=== PATIENT | female | born 1935 | race Caucasian/White ===

== ENCOUNTER 2017-11-18 05:30 | Inpatient (IN) | payer MEDICARE, OTHER ==
[2017-11-18 17:59] LABS: Mean Corpuscular HGB CONC 34.3 g/dL (32.0-36.0); Mean Corpuscular Hemoglobin 32.1 pg (27.0-31.0); Mean Corpuscular Volume 93.4 fl (81.0-99.0); Mean Platelet Volume 8.8 fL (7.4-10.4); Platelet Count 153 thou/uL (130-400); RBC Distribution Width 12.1 % (11.5-14.5); Red Blood Cell (RBC) Count 4.68 mill/uL (4.20-5.40); White Blood Cell (WBC) Count 5.4 thou/uL (4.8-10.8)
--- NOTE | 2017-11-18 18:14 | RAD ---
CHEST 1 VIEW: Date: 11/18/17 HISTORY: Fever. COMPARISON: None. FINDINGS: There are patchy air space opacities in both lower lobes. Heart size is enlarged. No pneumothorax. No focal osseous abnormality. IMPRESSION: 1. Faint lower lobe air opacities are somewhat streaky and may represent pneumonia in the correct cl inical setting. Follow-up recommended. 2. Mild lung hyperinflation suggestive of obstructive pulmonary disease. POS: HOME
[2017-11-18 18:23] LABS: Band 45 % (5-11); Lymphocytes 4 % (21-51); MDiff Complete? YES; Metamyelocyte 12 % (0-0); Monocytes 8 % (0-10); Neutrophil 31 % (42-75); PLT Morphology Comment Appears Adequate; RBC Morphology Normal; Reflex for Review?? YES
[2017-11-18 18:25] LABS: ALT (SGPT) 18 U/L (8-55); AST (SGOT) 50 U/L (5-34); Albumin 4.1 g/dL (3.4-4.8); Alkaline Phosphatase 61 U/L (40-150); Anion Gap 19 mmol/L (10-20); BUN (Urea Nitrogen) 25 mg/dL (9.8-20.1); Bilirubin, Total 0.8 mg/dL (0.2-1.2); Calc. Creatinine Clearance 0 mL/min (70-130); Calcium 9.6 mg/dL (7.8-10.44); Carbon Dioxide 20 mmol/L (23-31); Chloride 97 mmol/L (98-107); Estimated GFR-MDRD 43; Globulin 3.9 g/dL (2.4-3.5); Glucose 129 mg/dL (83-110); Potassium 3.4 mmol/L (3.5-5.1); Sodium 133 mmol/L (136-145)
[2017-11-18] MEDS ORDERED: Acetaminophen 325 MG TAB ONE ×2 (19:50→19:55)
[2017-11-18 20:01] LABS: Bilirubin Negative (Negative); Blood, Urine Large (Negative); Clarity CLOUDY (Clear); Glucose, Urine (Dipstick) Negative (Negative); Leukocyte Negative (Negative); Nitrite Negative (Negative); Protein, Urine (Dipstick) 100 mg/dL (Neg-Trace)
[2017-11-18 20:03] LABS: Bacteria/HPF None Seen HPF (None Seen); Pathc Cast-AUWi Flag 1.49 (0-2.49); Squamous Epithelial 0-3 HPF (0-3)
[2017-11-18 20:11] LABS: Hyaline Casts/LPF 0-3 HYALINE CAST LPF (0-3 Hyaline); Renal Epithelial 0-3 HPF (0-3); Transitional Epithelial 0-3 HPF (0-3)
[2017-11-18] MEDS ORDERED: Metoprolol Tartrate 50 MG TAB ONE (20:27)
[2017-11-18] MEDS ORDERED: Acetaminophen 325 MG TAB PO PRN (21:02)
[2017-11-18] MEDS ORDERED: Sodium Chloride 0.9% 1,000 ML IV SCH (21:15)
[2017-11-18 21:51] LABS: Lactic Acid 2.1 mmol/L (0.5-2.2)
[2017-11-18] MEDS ORDERED: Potassium Chloride 20 MEQ TAB PO SCH (22:00)
[2017-11-18 22:26] LABS: Creatinine, Urine 66.91 mg/dL (47-110)
[2017-11-18] MEDS ORDERED: Sodium Chloride 0.9% 500 ML IV SCH (22:45)
[2017-11-19 00:23] VITALS: BMI 19.6
[2017-11-19] MEDS: Sodium Chloride 0.9% 1,000 ML IV SCH ×3 (00:38→11:27)
[2017-11-19] MEDS: cefTRIAXone\\ROCEPHIN 1 GM in Sterile Water 10 ML IVPB SCH ×2 (01:10→22:27)
--- NOTE | 2017-11-19 03:48 | HP-2 ---
DATE OF SERVICE: 11/18/2017 TIME OF SERVICE: 10:30 p.m. CODE STATUS: FULL CODE. PRIMARY CARE PHYSICIAN: Dr. Ward. ATTENDING: Dr. Cruz. RESIDENT: Alin Aguilar MD CHIEF COMPLAINT: Cough and fever. HISTORY OF PRESENT ILLNESS: Sofie Alexander is an 82-year-old woman with a past medical history of hyperte nsion, hyperlipidemia, who presents with a cough since , approximately 5 days ago. She has a lso had some loose stools starting yesterday as well. The cough has been productive with clear mucus . Her appetite has been decreased as well as she has not been eating or drinking much due to dry yasir th and non-comfortable dentures. Patient denies chest pains, dizziness, dyspnea, nausea, vomiting, o r abdominal pain. She was sent to the ED from Urgent Care. In the ER, she received Zosyn and vancom ycin as well as two 1 liter boluses of normal saline. PAST MEDICAL HISTORY: 1. Hypertension. 2. Hyperlipidemia. 3. Osteoarthritis. PAST SURGICAL HISTORY: 1. Appendectomy. 2. Lumpectomy. 3. Hysterectomy. ALLERGIES: PENICILLINS. MEDICATIONS: 1. Metoprolol tartrate 50 mg p.o. b.i.d. 2. Amlodipine 2.5 mg p.o. daily. FAMILY HISTORY: Unremarkable. SOCIAL HISTORY: Patient denies tobacco, alcohol, or drug use. REVIEW OF SYSTEMS: Twelve point review of systems including general, eyes, ENT, respiratory, CV, GI, , skin, musculoskeletal, neuro, and psych were all negative, unless otherwise stated in the HPI wi th the exception of incontinence, dysuria, and polyuria and nasal congestion or rhinorrhea. PHYSICAL EXAMINATION: VITAL SIGNS: Blood pressure 119/68, pulse 99, respiratory rate 22, her temperature 100.1, pulse ox 9 5% on 2 liters. Current weight 68 kilograms. GENERAL: The patient is alert and oriented x4, in no acute distress. Well-developed, well-nourished , appropriately interactive. EYES: Pupils equal, round, reactive to light and accommodation. Extraocular muscles are intact. Co njunctivae within normal limits. ENT: Tympanic membranes pearly louie without bulging or erythema. Nasal mucosa and oropharynx within normal limits. NECK: Supple without lymphadenopathy or thyromegaly. CARDIOVASCULAR: The patient is tachycardic at times. She had irregular rhythm on the monitor. She does not have any murmurs or gallops throughout the exam. The patient would switch from sinus rhythm to what appeared to be atrial flutter and back to sinus rhythm. RESPIRATORY: Normal effort. No retractions. LUNGS: Clear to auscultation bilaterally. SKIN: Warm and dry. No cyanosis or lesions. ABDOMEN: Soft, nontender, bowel sounds x4. No masses or distention. EXTREMITIES: No clubbing, cyanosis, or edema. MUSCULOSKELETAL: Structure and tone within normal limits. Full range of motion. NEUROLOGIC: No focal deficits. Sensation within normal limits. PSYCHIATRIC: Appropriate. LABORATORY AND DIAGNOSTIC DATA: White blood cell count 5.4, hemoglobin 15.0, hematocrit 43.7, platel ets 153, 45% bands, 31% neutrophils, 12% metamyelocytes. Sodium 133, potassium 3.4, chloride 97, car bon dioxide 20, BUN 25, creatinine 1.19, glucose 129, calcium 9.6, total protein 8.0, albumin 4.1, to ann bilirubin 0.8, AST 50, ALT 18, alkaline phosphatase 61, lactic acid 3.4. UA was significant for large blood, 100 protein, trace ketones, 7-10 red blood cells, and 4-6 white blood cells, no bacteria seen. EKG showed atrial flutter with a rate of 160. Chest x-ray showed faint lower lobe opacity, m ay represent pneumonia and mild lung hyperinflation suggestive of COPD. ASSESSMENT AND PLAN: An 82-year-old female with hypertension, hyperlipidemia, and osteoarthritis. 1. Sepsis secondary to pneumonia versus influenza versus urinary tract infection. Admit to telemetr y, check for influenza. Blood and urine cultures pending. Start IV antibiotics, vancomycin, and Jose ephin. The patient has allergy to PENICILLIN, but has tolerated Rocephin in the past. Normal white blood cell count, but increased bands of 45% and metamyelocytes of 12%. We will recheck a lactate. 2. New onset atrial flutter. Missed home dose of metoprolol and amlodipine today. Likely secondary to that and to acute infection. We will reevaluate after starting home meds and giving IV fluids. 3. Hypokalemia, supplement and recheck. 4. Acute kidney injury versus chronic kidney disease. Check urine sodium and urine creatinine to ch ariela for fractional excretion of sodium. 5. Hypertension. Start home medications. 6. Diet: Heart healthy. 7. Activity: Ambulate with assist. 8. Code status: FULL CODE. DISPOSITION AND LENGTH OF HOSPITAL STAY: Two days. Symptomatic medications were provided. History and physical exam as well as management were discussed with Dr. Cruz.
[2017-11-19 04:56] LABS: Anion Gap 11 mmol/L (10-20); BUN (Urea Nitrogen) 22 mg/dL (9.8-20.1); Calc. Creatinine Clearance 50 mL/min (70-130); Calcium 8.2 mg/dL (7.8-10.44); Carbon Dioxide 23 mmol/L (23-31); Chloride 104 mmol/L (98-107); Estimated GFR-MDRD 66; Glucose 95 mg/dL (83-110); Potassium 3.4 mmol/L (3.5-5.1); Sodium 135 mmol/L (136-145)
[2017-11-19 05:47] LABS: Band 20 % (5-11); Hemoglobin 12.6 g/dL (12.0-16.0); Lymphocytes 7 % (21-51); MDiff Complete? YES; Mean Corpuscular HGB CONC 34.7 g/dL (32.0-36.0); Mean Corpuscular Hemoglobin 32.2 pg (27.0-31.0); Mean Corpuscular Volume 92.8 fl (81.0-99.0); Mean Platelet Volume 9.3 fL (7.4-10.4); Metamyelocyte 3 % (0-0); Monocytes 6 % (0-10); Neutrophil 63 % (42-75); PLT Morphology Comment Appears Decreased; Platelet Count 124 thou/uL (130-400); RBC Morphology Normal; Reactive Lymphocytes 1 % (0-10); Red Blood Cell (RBC) Count 3.92 mill/uL (4.20-5.40); White Blood Cell (WBC) Count 3.9 thou/uL (4.8-10.8)
[2017-11-19] MEDS ORDERED: Potassium Chloride 20 MEQ TAB PO SCH (07:00)
[2017-11-19] MEDS ORDERED: Vancomycin HCl 1.25 GM in Sodium Chloride 0.9% 250 ML 250 ML IVPB SCH (09:00)
[2017-11-19] MEDS ORDERED: guaiFENesin ER 600 MG TAB PO SCH (09:00)
[2017-11-19] MEDS ORDERED: Azithromycin 250 MG TAB PO SCH (10:45)
[2017-11-19 11:24] LABS: Legionella Urinary Ag Negative (Negative); Strep pneumo Urine Ag POSITIVE (NEGATIVE)
--- NOTE | 2017-11-19 11:25 | PDOC.FM ---
- Subjective Subjective: Pt reports doing a little better this morning. Denies any fever, chills. Denies any acute events overnight. Is tolerating PO. Has not gotten up and moved around much yet. - Objective MAR Reviewed: Yes Vital Signs & Weight: Vital Signs (12 hours) Temp Pulse Resp BP BP Pulse Ox 11/19/17 08:42 99.0 F 74 18 94 L 11/19/17 08:40 99.0 F 74 18 137/69 96 11/19/17 06:10 66 18 114/53 L 96 11/19/17 05:15 82 20 95/50 L 96 11/19/17 04:01 98.5 F 74 18 104/45 L 95 11/18/17 23:37 97.8 F 65 24 H 112/54 L 91 L Weight Weight 62.142 kg I&O: 11/18/17 11/19/17 11/20/17 06:59 06:59 06:59 Intake Total 1020 400 Output Total 50 Balance 970 400 Result Diagrams: 11/19/17 03:52 11/19/17 03:52 Radiology Reviewed by me: Yes Radiology: CXR: 1. faint lower lobe air opacities are somewhat streaky and may represent pneumonia in clinical setting. 2. Mild lung hyperinflation suggestive of obstructive pulm disease <Christoph Coffman - Last Filed: 11/19/17 11:22> - Objective Vital Signs & Weight: Vital Signs (12 hours) Temp Pulse Resp BP BP Pulse Ox 11/19/17 11:48 92 L 11/19/17 11:32 98.8 F 84 19 101/70 92 L 11/19/17 08:42 99.0 F 74 18 94 L 11/19/17 08:40 99.0 F 74 18 137/69 96 11/19/17 06:10 66 18 114/53 L 96 11/19/17 05:15 82 20 95/50 L 96 11/19/17 04:01 98.5 F 74 18 104/45 L 95 Weight Weight 62.142 kg I&O: 11/18/17 11/19/17 11/20/17 06:59 06:59 06:59 Intake Total 1020 400 Output Total 50 Balance 970 400 Result Diagrams: 11/19/17 03:52 11/19/17 03:52 <Alejandro Nunez - Last Filed: 11/19/17 12:48> Phys Exam - Physical Examination HEENT: moist MMs, oral pharynx no lesions Neck: no nodes, supple, full ROM prominent crackles noted in LLL. Mild crakles in other lobes decreased air movement auscultated bilaterally Cardiovascular: RRR, no significant murmur, no rub Gastrointestinal: soft, non-tender, no distention, positive bowel sounds Musculoskeletal: no edema, pulses present Neurological: non-focal, normal sensation, moves all 4 limbs Lymphatic: no nodes Psychiatric: normal affect Skin: normal turgor Deviation from normal: Has patch of lichen sclerosis on back. Dry skin. Likely from chronic itchin <Christoph Coffman - Last Filed: 11/19/17 11:22> Dx/Plan (1) Sepsis due to pneumonia Code(s): J18.9 - PNEUMONIA, UNSPECIFIED ORGANISM; A41.9 - SEPSIS, UNSPECIFIED ORGANISM Status: Resolved Plan: Had increased hr due to atrial flutter. RR increased initialy. Requiring O2 due to desaturation. Source of infection likely pneumonia on CXR. Vital have since improved. Lactic acid down from 3.1 to 2. Was initially tx with Vancomycin and rocephin. Will continue tx with rocephin. D /c Vancomycin and will switch to azithromycin. Was on IV fluids. Tolerating PO now. Lungs getting crackly. Will hold IV fluids for now and encourage PO. Will recheck BMP and CBC tmrw am. (2) Community acquired pneumonia Code(s): J18.9 - PNEUMONIA, UNSPECIFIED ORGANISM Status: Acute Plan: Plan as above for sepsis. Azithromycin and rocephin for Abx coverage. Will continue to wean off oxygen. Does not require at home. Blood Cx-NGTD -Will check Urine Ag for S. pneumo and Legionella Will adjust abx as needed. -Walking program ordered for her to help and get up and move around. (3) Atrial flutter Code(s): I48.92 - UNSPECIFIED ATRIAL FLUTTER Status: Resolved Plan: -Had short episode of Atrial flutter in ER. Is on metroprolol at home. Had missed a few doses of medication at home. Also was septic due to pneumonia initially. -Atrial flutter has since then resolved after getting fluids and abx. -On tele monitoring. Rate and rhythm normal. No new episode since admission. -Will continue home metoprolol. (4) Hypokalemia Code(s): E87.6 - HYPOKALEMIA Status: Acute Plan: K-3.4 this am. replaced with KCl this morning. will recheck BMP in the am and replace as needed. (5) HTN (hypertension) Code(s): I10 - ESSENTIAL (PRIMARY) HYPERTENSION Status: Acute Plan: -continue home meds. <Christoph Coffman - Last Filed: 11/19/17 11:22> Attending Addendum - Attending Addendum I personally evaluated the patient and discussed the management with Dr. Coffman. I agree with the History, Examination, Assessment and Plan documented above with any addition or exceptions noted below. Patient admitted due to sepsis 2/2 likely community aquired pneumonia. She has productive cough, new oxygen requirement, and possible LLL opacity on XR. She has rales on clinical exam. Will discontinue Vanc therapy and add Azithromycin for CAP coverage. Will check urine antigens for legionella and strep pneumo. Her ABISAI is improved this morning. Wean O2 as tolerated. Expect that she needs a few more days in hospital. Encourage ambulation. No evidence for fluid overload at this time. <Alejandro Nunez - Last Filed: 11/19/17 12:48>
[2017-11-19] MEDS ORDERED: Vancomycin HCl 1 GM in Premix Bag 1 BAG IVPB SCH (18:00)
[2017-11-19] MEDS: guaiFENesin ER 600 MG TAB PO SCH (20:22)
[2017-11-19] MEDS: Metoprolol Tartrate 50 MG TAB PO SCH (20:22)
[2017-11-19] MEDS ORDERED: cefTRIAXone\\ROCEPHIN 1 GM in Sodium Chloride 0.9% 100 ML IVPB SCH (22:15)
[2017-11-20 06:21] LABS: Anion Gap 14 mmol/L (10-20); BUN (Urea Nitrogen) 17 mg/dL (9.8-20.1); Calc. Creatinine Clearance 59 mL/min (70-130); Calcium 8.7 mg/dL (7.8-10.44); Carbon Dioxide 21 mmol/L (23-31); Chloride 107 mmol/L (98-107); Estimated GFR-MDRD 80; Glucose 74 mg/dL (83-110); Sodium 138 mmol/L (136-145)
[2017-11-20 06:25] LABS: Hemoglobin 12.5 g/dL (12.0-16.0); Mean Corpuscular HGB CONC 33.7 g/dL (32.0-36.0); Mean Corpuscular Hemoglobin 31.8 pg (27.0-31.0); Mean Corpuscular Volume 94.3 fl (81.0-99.0); Mean Platelet Volume 8.8 fL (7.4-10.4); Platelet Count 124 thou/uL (130-400); RBC Distribution Width 12.2 % (11.5-14.5); Red Blood Cell (RBC) Count 3.92 mill/uL (4.20-5.40); White Blood Cell (WBC) Count 5.2 thou/uL (4.8-10.8)
[2017-11-20 06:30] LABS: Band 24 % (5-11); Lymphocytes 8 % (21-51); MDiff Complete? YES; Monocytes 4 % (0-10); Neutrophil 64 % (42-75); PLT Morphology Comment Appears Adequate
[2017-11-20] MEDS: Metoprolol Tartrate 50 MG TAB PO SCH ×2 (08:30→20:40)
[2017-11-20] MEDS: Amlodipine 5 MG TAB PO SCH (08:30)
[2017-11-20] MEDS: guaiFENesin ER 600 MG TAB PO SCH ×2 (08:31→20:39)
--- NOTE | 2017-11-20 08:33 | PDOC.FM ---
- Subjective Subjective: Pt reports being about the same from yesterday. Denies any acute events overnight. States she is tired of coughing. Denies sore throat. Denies fevers or chills. Has gotten and walked up some. Pt still requiring O2 at this time. - Objective MAR Reviewed: Yes Vital Signs & Weight: Vital Signs (12 hours) Temp Pulse Resp BP BP Pulse Ox 11/20/17 07:40 98.9 F 86 18 143/62 H 93 L 11/20/17 06:08 80 20 128/85 94 L 11/20/17 05:16 94 L 11/20/17 04:17 143/59 H 11/20/17 04:00 97.7 F 86 18 160/73 H 94 L 11/20/17 00:00 97.3 F L 113 H 20 117/44 L 93 L Weight Weight 62.142 kg I&O: 11/19/17 11/20/17 11/21/17 06:59 06:59 06:59 Intake Total 1020 2640 Output Total 50 Balance 970 2640 Result Diagrams: 11/20/17 05:18 11/20/17 05:18 Radiology Reviewed by me: Yes (No new radiographs to review this morning) <Christoph Coffamn - Last Filed: 11/20/17 08:29> - Objective Vital Signs & Weight: Vital Signs (12 hours) Temp Pulse Resp BP BP BP Pulse Ox 11/20/17 08:30 98.9 F 95 18 142/77 H 93 L 11/20/17 07:40 98.9 F 86 18 143/62 H 93 L 11/20/17 06:08 80 20 128/85 94 L 11/20/17 05:16 94 L 11/20/17 04:17 143/59 H 11/20/17 04:00 97.7 F 86 18 160/73 H 94 L 11/20/17 00:00 97.3 F L 113 H 20 117/44 L 93 L Weight Weight 62.142 kg I&O: 11/19/17 11/20/17 11/21/17 06:59 06:59 06:59 Intake Total 1020 2640 Output Total 50 Balance 970 2640 Result Diagrams: 11/20/17 05:18 11/20/17 05:18 <Alejandro Nunez - Last Filed: 11/20/17 12:00> Phys Exam - Physical Examination HEENT: moist MMs, oral pharynx no lesions Neck: no nodes, no JVD, supple, full ROM Respiratory: wheezing present crackles on auscultation bilaterally Cardiovascular: RRR, no significant murmur, no rub Gastrointestinal: soft, non-tender, no distention, positive bowel sounds Musculoskeletal: no edema, pulses present Neurological: non-focal, normal sensation, moves all 4 limbs Lymphatic: no nodes Psychiatric: normal affect Skin: no rash, normal turgor, cap refill <2 seconds <MeghnaChristoph - Last Filed: 11/20/17 08:29> Dx/Plan (1) Sepsis due to pneumonia Code(s): J18.9 - PNEUMONIA, UNSPECIFIED ORGANISM; A41.9 - SEPSIS, UNSPECIFIED ORGANISM Status: Resolved Plan: Had increased hr due to atrial flutter. RR increased initialy. Requiring O2 due to desaturation. Source of infection likely pneumonia on CXR. Vital have since improved. Lactic acid down from 3.1 to 2. Sepsis resolved at this time. Was initially tx with Vancomycin and rocephin. Will continue tx with rocephin. D /c Vancomycin and will switch to azithromycin. Was on IV fluids. Tolerating PO now. Lungs still crackly and some expitory wheezes noted. No leukocytosis on CMP today. No abnormality noted on BMP. continue PO intake (2) Community acquired pneumonia Code(s): J18.9 - PNEUMONIA, UNSPECIFIED ORGANISM Status: Acute Plan: Plan as above for sepsis. Azithromycin and rocephin for Abx coverage. Can d/c azithromycin at this time as Urine Ag s. pneumo +. Source of pnuemonia is covered by rocephin. Will continue to wean off oxygen. Does not require at home. Will continue IV abx today as still requiring O2, having lots of cough. Crackles on auscultation Blood Cx-NGTD Urine Ag S. Pnuemo + Urine Ag Legionalle - -Walking program ordered for her to help and get up and move around. (3) Atrial flutter Code(s): I48.92 - UNSPECIFIED ATRIAL FLUTTER Status: Resolved Plan: -Had short episode of Atrial flutter in ER. Is on metroprolol at home. Had missed a few doses of medication at home. Also was septic due to pneumonia initially. -Atrial flutter has since then resolved after getting fluids and abx. -On tele monitoring. Rate and rhythm normal. No new episode since admission. -Will continue home metoprolol. (4) Hypokalemia Code(s): E87.6 - HYPOKALEMIA Status: Resolved Plan: K-4.0 this am. Will check BMP as needed. (5) HTN (hypertension) Code(s): I10 - ESSENTIAL (PRIMARY) HYPERTENSION Status: Acute Plan: -continue home meds. -Had one elevated BP. Will continue to monitor BP. Will adjust medication as needed. <Christoph Coffman - Last Filed: 11/20/17 08:29> Attending Addendum - Attending Addendum I personally evaluated the patient and discussed the management with Dr. Coffman. I agree with the History, Examination, Assessment and Plan documented above with any addition or exceptions noted below. Patient with confirmed Strep pneumo community acquired pneumonia. She will be continued on IV Rocephin for now. Still has supplemental oxygen requirement over her baseline. Continue to wean O2 as tolerated. Her renal function is improved, and she has had no abnormal heart rhythms since admission. Will transfer to medical floor. Will likely need 1-2 days more in hospital. Adding Duoneb to therapy for wheezes today. <Alejandro Nunez - Last Filed: 11/20/17 12:00>
[2017-11-20] MEDS ORDERED: FLU VACC TS2017-18 (>65YR) 0.5 ML SYRINGE IM ONE (09:00)
[2017-11-20] MEDS ORDERED: Azithromycin 250 MG TAB PO SCH (09:00)
[2017-11-20] MEDS: cefTRIAXone\\ROCEPHIN 1 GM in Sterile Water 10 ML IVPB SCH (22:19)
[2017-11-21] MEDS: predniSONE 20 MG TAB PO SCH (08:20)
[2017-11-21] MEDS: Amlodipine 5 MG TAB PO SCH (08:20)
[2017-11-21] MEDS: Metoprolol Tartrate 50 MG TAB PO SCH ×2 (08:20→21:05)
[2017-11-21] MEDS: guaiFENesin ER 600 MG TAB PO SCH ×2 (08:20→21:04)
--- NOTE | 2017-11-21 08:26 | PDOC.FM ---
- Subjective Subjective: Pt reports not resting well overnight. Reports a lot of coughing and chest pain associated with cough. Denies sore throat. Says she still feels weak. Did not drink fluids or eat well yesterday. Denies any fever or chills. - Objective MAR Reviewed: Yes Vital Signs & Weight: Vital Signs (12 hours) Temp Pulse Resp BP BP Pulse Ox 11/21/17 08:20 91 145/77 H 11/21/17 07:49 97.4 F L 91 16 145/77 H 92 L 11/21/17 06:02 87 18 95 11/21/17 03:43 95 11/20/17 23:55 81 16 94 L Weight Weight 62.142 kg I&O: 11/20/17 11/21/17 11/22/17 06:59 06:59 06:59 Intake Total 2640 480 Balance 2640 480 Result Diagrams: 11/20/17 05:18 11/20/17 05:18 Radiology Reviewed by me: Yes (No new imaging to review today) <Christoph Coffman - Last Filed: 11/21/17 08:24> - Objective Vital Signs & Weight: Vital Signs (12 hours) Temp Pulse Resp BP BP BP Pulse Ox 11/21/17 11:39 67 16 119/72 93 L 11/21/17 11:35 67 16 94 L 11/21/17 08:20 91 145/77 H 11/21/17 08:00 97.4 F L 91 18 11/21/17 07:49 97.4 F L 91 16 145/77 H 92 L 11/21/17 06:02 87 18 95 11/21/17 03:43 95 Weight Weight 62.142 kg I&O: 11/20/17 11/21/17 11/22/17 06:59 06:59 06:59 Intake Total 2640 480 Balance 2640 480 Result Diagrams: 11/20/17 05:18 11/21/17 08:45 <Alejandro Nunez - Last Filed: 11/21/17 12:32> Phys Exam - Physical Examination Pt just appears weak and still acutely ill. HEENT: moist MMs, oral pharynx no lesions Neck: no nodes, no JVD, supple, full ROM Respiratory: wheezing present Crackles heard in all lobes. Cardiovascular: RRR, no significant murmur, no rub Gastrointestinal: soft, non-tender, no distention, positive bowel sounds Musculoskeletal: no edema, pulses present Neurological: non-focal, normal sensation, moves all 4 limbs Lymphatic: no nodes Psychiatric: normal affect, A&O x 3 Skin: no rash, normal turgor <Christoph Coffman - Last Filed: 11/21/17 08:24> Dx/Plan (1) Sepsis due to pneumonia Code(s): J18.9 - PNEUMONIA, UNSPECIFIED ORGANISM; A41.9 - SEPSIS, UNSPECIFIED ORGANISM Status: Resolved Plan: Had increased hr due to atrial flutter. RR increased initialy. Requiring O2 due to desaturation. Source of infection likely pneumonia on CXR. Vital have since improved. Lactic acid down from 3.1 to 2. Sepsis resolved at this time. Was initially tx with Vancomycin and rocephin. Will continue tx with rocephin. D /c Vancomycin and will switch to azithromycin. Azithromycin discontinued as urine ag was strep pneumo positive. Being covered w/ rocephin Was on IV fluids. Lungs still crackly and some expitory wheezes noted. No leukocytosis noted. Checking BMP today to check for signs of dehydration. Pt not drinking or eating much. (2) Community acquired pneumonia Code(s): J18.9 - PNEUMONIA, UNSPECIFIED ORGANISM Status: Acute Plan: Plan as above for sepsis. Rocephin for Abx coverage.Urine Ag s. pneumo +. Source of pnuemonia is covered by rocephin. Will continue to wean off oxygen. Does not require at home. Will continue IV abx today. O2 sats 95-96% on RA. Lungs still very wheezy and crackly. Pt having lots of cough and reports still feeling ill and weak. Will add prednisone to help w/ sx's and help open airways. Also CXR showed possible underlying obstructive airway disease. Blood Cx-NGTD Urine Ag S. Pnuemo + Urine Ag Legionalle - -Walking program ordered for her to help and get up and move around. (3) Atrial flutter Code(s): I48.92 - UNSPECIFIED ATRIAL FLUTTER Status: Resolved Plan: -Had short episode of Atrial flutter in ER. Is on metroprolol at home. Had missed a few doses of medication at home. Also was septic due to pneumonia initially. -Atrial flutter has since then resolved after getting fluids and abx. Rate and rhythm normal. No new episode since admission. -Will continue home metoprolol. (4) Hypokalemia Code(s): E87.6 - HYPOKALEMIA Status: Resolved Plan: K-4.0 this am. Checking BMP this morning. Will replace if need be (5) HTN (hypertension) Code(s): I10 - ESSENTIAL (PRIMARY) HYPERTENSION Status: Acute Plan: -continue home meds. -Had one elevated BP. Will continue to monitor BP. Will adjust medication as needed. <Christoph Coffman - Last Filed: 11/21/17 08:24> Attending Addendum - Attending Addendum I personally evaluated the patient and discussed the management with Dr. Coffman. I agree with the History, Examination, Assessment and Plan documented above with any addition or exceptions noted below. Patient continues on treatment for Strep pneumo pneumonia. She is doing somewhat better, able to breathe more comfortably without supplemental therapy. Continue abx and encourage ambulation. Anticipate discharge tomorrow if doing well. <Alejandro Nunez - Last Filed: 11/21/17 12:32>
[2017-11-21 09:16] LABS: Sodium 139 mmol/L (136-145)
[2017-11-21 09:17] LABS: Anion Gap 16 mmol/L (10-20); BUN (Urea Nitrogen) 11 mg/dL (9.8-20.1); Calc. Creatinine Clearance 59 mL/min (70-130); Calcium 8.7 mg/dL (7.8-10.44); Carbon Dioxide 22 mmol/L (23-31); Chloride 104 mmol/L (98-107); Estimated GFR-MDRD 80; Glucose 97 mg/dL (83-110); Potassium 3.3 mmol/L (3.5-5.1)
[2017-11-21] MEDS: cefTRIAXone\\ROCEPHIN 1 GM in Sterile Water 10 ML IVPB SCH ×2 (21:05→21:18)
[2017-11-21] MEDS ORDERED: cefTRIAXone\\ROCEPHIN 1 GM VIAL IM SCH (21:45)
[2017-11-21] MEDS ORDERED: Sterile Water 10 ML ONE (21:58)
[2017-11-22] MEDS ORDERED: Potassium Chloride 20 MEQ TAB PO SCH (06:45)
[2017-11-22 07:21] LABS: Hemoglobin 11.7 g/dL (12.0-16.0); Mean Corpuscular HGB CONC 33.8 g/dL (32.0-36.0); Mean Corpuscular Hemoglobin 31.2 pg (27.0-31.0); Mean Corpuscular Volume 92.4 fl (81.0-99.0); Mean Platelet Volume 8.6 fL (7.4-10.4); Platelet Count 145 thou/uL (130-400); Red Blood Cell (RBC) Count 3.76 mill/uL (4.20-5.40)
[2017-11-22] MEDS: predniSONE 20 MG TAB PO SCH (07:55)
[2017-11-22] MEDS: guaiFENesin ER 600 MG TAB PO SCH (07:55)
[2017-11-22] MEDS: Amlodipine 5 MG TAB PO SCH (07:55)
[2017-11-22] MEDS: Metoprolol Tartrate 50 MG TAB PO SCH (07:56)
--- NOTE | 2017-11-22 08:47 | PDOC.FM ---
- Subjective Subjective: Pt doing much better this morning. Says she feels like she can go home. Is still having a lot of coughing. Denies sore throat. Denies any fevers or chills overnight. Denies any nasal congestion. [place] n/v/d/c. No acute events overnight. - Objective Vital Signs & Weight: Vital Signs (12 hours) Temp Pulse Resp BP BP Pulse Ox 11/22/17 08:00 97.9 F 101 H 18 90 L 11/22/17 07:55 101 H 165/60 H 11/22/17 07:44 97.9 F 101 H 24 H 165/60 H 11/22/17 06:42 85 16 95 11/22/17 02:51 92 L 11/22/17 00:50 104 H 12 Weight Weight 62.142 kg I&O: 11/21/17 11/22/17 11/23/17 06:59 06:59 06:59 Intake Total 480 Balance 480 Result Diagrams: 11/22/17 06:58 11/21/17 08:45 Radiology Reviewed by me: Yes (No new imaging to review) <Christoph Coffman - Last Filed: 11/22/17 08:45> - Objective Vital Signs & Weight: Vital Signs (12 hours) Temp Pulse Resp BP BP Pulse Ox 11/22/17 11:35 98.1 F 60 20 150/73 H 94 L 11/22/17 08:00 97.9 F 101 H 18 90 L 11/22/17 07:55 101 H 165/60 H 11/22/17 07:44 97.9 F 101 H 24 H 165/60 H 11/22/17 06:42 85 16 95 11/22/17 02:51 92 L 11/22/17 00:50 104 H 12 Weight Weight 62.142 kg I&O: 11/21/17 11/22/17 11/23/17 06:59 06:59 06:59 Intake Total 480 180 Balance 480 180 Result Diagrams: 11/22/17 06:58 11/22/17 06:57 <Alejandro Nunez - Last Filed: 11/22/17 12:19> Phys Exam - Physical Examination HEENT: moist MMs, oral pharynx no lesions Neck: no nodes, no JVD, supple, full ROM crackles and wheezing noted in lung bases bilaterally Cardiovascular: RRR, no significant murmur, no rub Gastrointestinal: soft, non-tender, no distention Musculoskeletal: no edema, pulses present Neurological: non-focal, normal sensation, moves all 4 limbs Lymphatic: no nodes Psychiatric: normal affect, A&O x 3 Skin: no rash, normal turgor <Christoph Coffman - Last Filed: 11/22/17 08:45> Dx/Plan (1) Sepsis due to pneumonia Code(s): J18.9 - PNEUMONIA, UNSPECIFIED ORGANISM; A41.9 - SEPSIS, UNSPECIFIED ORGANISM Status: Resolved Plan: Had increased hr due to atrial flutter. RR increased initialy. Requiring O2 due to desaturation. Source of infection likely pneumonia on CXR. Vital have since improved. Lactic acid down from 3.1 to 2. Sepsis resolved at this time. Was initially tx with Vancomycin and rocephin. Will continue tx with rocephin. D /c Vancomycin and will switch to azithromycin. Azithromycin discontinued as urine ag was strep pneumo positive. Being covered w/ rocephin Was on IV fluids. Lungs sounds improved from yesterday. Wheezes and crackles only noted in lung bases. No leukocytosis noted. (2) Community acquired pneumonia Code(s): J18.9 - PNEUMONIA, UNSPECIFIED ORGANISM Status: Acute Plan: Plan as above for sepsis. Rocephin for Abx coverage.Urine Ag s. pneumo +. Source of pnuemonia is covered by rocephin. Will continue to wean off oxygen. Does not require at home. Pt was satting low in 89 90% when vitals were checked this morning. May need some O2 support for another day. Will continue IV abx today. O2 sats 95-96% on RA. Lungs still very wheezy and crackly. Pt having lots of cough and reports still feeling ill and weak. Will add prednisone to help w/ sx's and help open airways. Also CXR showed possible underlying obstructive airway disease. Blood Cx-NGTD Urine Ag S. Pnuemo + Urine Ag Legionalle - -Walking program ordered for her to help and get up and move around. (3) Atrial flutter Code(s): I48.92 - UNSPECIFIED ATRIAL FLUTTER Status: Resolved Plan: -Had short episode of Atrial flutter in ER. Is on metroprolol at home. Had missed a few doses of medication at home. Also was septic due to pneumonia initially. -Atrial flutter has since then resolved after getting fluids and abx. Rate and rhythm normal. No new episode since admission. -Will continue home metoprolol. (4) Hypokalemia Code(s): E87.6 - HYPOKALEMIA Status: Resolved Plan: K-3.3 yesterday. replaced with potassium. Will replace as needed. (5) HTN (hypertension) Code(s): I10 - ESSENTIAL (PRIMARY) HYPERTENSION Status: Acute Plan: -continue home meds. -BP a little elevated. Will continue to monitor BP. Will adjust medication as needed. <Christoph Coffman - Last Filed: 11/22/17 08:45> Attending Addendum - Attending Addendum I personally evaluated the patient and discussed the management with Dr. Coffman. I agree with the History, Examination, Assessment and Plan documented above with any addition or exceptions noted below. Patient reports improvement today and wants to go home. Her O2 sats have been ok on room air, 95% at the time of my exam. We will perform walk test to ensure she does not require O2, and likely send home later today. <Alejandro Nunez - Last Filed: 11/22/17 12:19>
[2017-11-22 09:04] LABS: Band 5 % (5-11); Lymphocytes 9 % (21-51); MDiff Complete? YES; Monocytes 7 % (0-10); Neutrophil 78 % (42-75); RBC Morphology Normal; Reactive Lymphocytes 1 % (0-10)
[2017-11-22 10:16] LABS: Anion Gap 14 mmol/L (10-20); BUN (Urea Nitrogen) 10 mg/dL (9.8-20.1); Calc. Creatinine Clearance 62 mL/min (70-130); Calcium 8.9 mg/dL (7.8-10.44); Carbon Dioxide 22 mmol/L (23-31); Chloride 105 mmol/L (98-107); Estimated GFR-MDRD 85; Glucose 104 mg/dL (83-110); Potassium 3.2 mmol/L (3.5-5.1); Sodium 138 mmol/L (136-145)
[2017-11-22 15:58] VITALS: BP 150/71; TEMP 97.6
--- NOTE | 2017-11-26 13:00 | DIS-2 ---
DATE OF ADMISSION: 11/18/2017 DATE OF DISCHARGE: 11/22/2017 ADMITTING ATTENDING: Shakeel Cruz M.D. DISCHARGE ATTENDING: Alejandro Nunez MD RESIDENT: Christoph Coffman, PGY-1. PROCEDURES: No procedures. CONSULTS: No consults. IMAGING: On 11/18/2017, chest x-ray showed: 1. Faint lower lobe air opacities are somewhat streaky and they represent pneumonia in the correct c linical setting. Followup recommended. 2. Mild lung hyperinflation suggestive of obstructive pulmonary disease. PRIMARY DIAGNOSES: 1. Sepsis due to pneumonia. 2. Community-acquired pneumonia due to Streptococcus pneumoniae. 3. Episode of atrial flutter. 4. Hypokalemia. 5. Hypertension. DISCHARGE MEDICATIONS: Omnicef 300 mg p.o. q.12 hours for 9 days, Mucinex 1200 mg p.o. q.12 hours, a nd prednisone 40 mg p.o. q.a.m. for 3 more days. Other discharge medications were amlodipine 2.5 mg daily, metoprolol 50 mg p.o. b.i.d. HISTORY OF PRESENT ILLNESS AND BRIEF HOSPITAL COURSE: This is an 82-year-old female who came in, who had been having a cough for about 5 days. She said the cough was productive of clear mucus. She marie d not been eating much or drinking much as she had dry mouth and uncomfortable dentures. She denied any chest pain, vomiting, abdominal pain. She was sent from the urgent care to the emergency departm ent. In the emergency department, she received Zosyn and vancomycin, got the chest x-ray which showe d the above findings of pneumonia. Her white blood cell count on admission was 5.4. Her temperature was 100.1 and she was requiring oxygen 2 liters, satting 95%. Her respiratory rate was a little bit increased to 22. At this time, she was admitted for sepsis either secondary to pneumonia or influen za. She was admitted to tele. She was started on IV antibiotics. She has gotten vancomycin and Zos yn in the ER, but we switched her to vancomycin and Rocephin. She has a noted PENICILLIN allergy but has used Rocephin in the past. Even though her white blood cell count was normal, she did have incr eased bands at 45% and metamyelocytes at 12%. Her lactic acid was elevated at 3.4 on admission as we ll. On recheck, it would trend down to 2.1. Also, when she came in, she had a little episode of atr ial flutter. She had missed her home dose of metoprolol and amlodipine due to the infection. She wa s given a bolus of IV fluids and started on antibiotics and the atrial flutter resolved soon afterwar ds. She never did have any more episodes during her admission. Also, on admission, her creatinine w as found to be a little bit elevated at 1.19. Again, she was started on the fluids. Her creatinine would then trend down the next day on 11/19/2017 to 0.82 and resolved. She was a little bit of hypok alemic 3.4 on the 11/18/2017, 11/19/2017; up to 4.0 on the 11/20/2017, go back down to 3.3 on the and 3.2 on the 11/22/2017. She still was not having much of an appetite. We would replace p otassium as needed while she was here. During this time, she never did get a white blood cell count. She never did spike a fever once she got admitted, but her band neutrophils would go from 45 to 20 to 24 to 5 eventually and her metamyelocyte trended from 12 to 3 to not reportable over the course of the 3 days. On the second day, when we saw her on 11/19/2017, we decided to switch her from the van comycin to azithromycin. We got a flu panel on her, which was negative. We have got blood cultures, urine cultures which did not grow anything while she was here. We also on that day ordered urine an tigens for strep pneumo and legionella. On the next day on 11/20/2017, when it came back, she was po sitive for strep pneumo urinary antigen; she had a source for pneumonia. We stopped the azithromycin on 11/20/2017 and just continued with Rocephin while she was here until 11/22/2017. On the first fe w days, she was here, she was satting in the low 89%-90% when off oxygen, so she would require oxygen for the first few days, 2 liters to sat up in the 95%. She was still pretty weak, not eating very m uch, just reporting weaness. We restarted her home metoprolol and amlodipine, and she never did have another episode of atrial flutter and we continued to treat her with Rocephin. On 11/28/2017, when I saw her, her lungs were starting to sound a little wheezy, still had some crackles in it. At this time, x-ray mentioned some obstructive pulmonary disease. I added DuoNebs which seemed to help her b reathing well, seemed to help her improve, but then on 11/21/2017, she is still kind of reporting mia ng weak, kind of being ill, still needing the oxygen. She is on 2 liters, sat in the low 90-91% and so at this time, I added also a little steroid on as well. On 11/21/2017, the steroids seemed to hel p a lot. She was feeling a lot better. When checking her oxygen, she was weaned off overnight and w as satting around 92% to 94%. We are concerned that she might need some oxygen when she got up and m chintan around. We did a home O2 testing and she only satted down in the 91%, and after walking, it wou ld get up to 98%. She is feeling better, eating a little bit better, and at this time was ready to g o home. The whole time she was here, she still reported a real bad deep cough, not really productive , not coughing anything up, and denied any sore throat. She also reported having a little bit of nakita al congestion, so we added on some Mucinex as well while she was here. So at this time, we discharge d her home with Omnicef as she reported being allergic to PENICILLIN medication. We had a positive s trep pneumo urinary antigen and we had also sent her home with 3 more days of steroid to do a 5-day c ourse. We did not think she needed the DuoNebs anymore in her home, did not need home O2, and told h er to follow up within a week with her primary care. DISPOSITION: Stable. DISCHARGE INSTRUCTIONS: 1. Location: Home. 2. Activity: Activity as tolerated. 3. Diet: Heart-healthy diet. 4. Followup: Will need to follow up with her primary care doctor within a week to 2 weeks for christie brooks.
== END 2017-11-22 15:12 | disposition home or self-care (01) | DRG 871 ==
LOC: ERS 16:57 → ERHOLD 18:30 → IMCU/EMU 23:33 → T4-A 11-20 13:50
PROVIDERS: ADMIT Family Medicine; ATTEND Family Medicine
DX: A41.9 Sepsis, unspecified organism (principal); J13 Pneumonia due to Streptococcus pneumoniae; N17.9 Acute kidney failure, unspecified; I48.92 Unspecified atrial flutter; J44.0 Chronic obstructive pulmonary disease with (acute) lower respiratory infection; E86.0 Dehydration; E87.6 Hypokalemia; I10 Essential (primary) hypertension; Z91.010 Allergy to peanuts; Z90.711 Acquired absence of uterus with remaining cervical stump
CPT/HCPCS: 36415; 71010; 80048; 80053; 81003; 81015; 82570; 83605; 83880; 84300; 85007; 85025; 85027; 85060; 87040; 87086; 87899; 90471; 90682; 93005; 94640; 96361; 96365; A4216; G0008; G8996-GN-CH; G8997-GN-CH; J0696; J3370; J7506; J7620; Q2036

== ENCOUNTER 2018-06-12 12:12 | Outpatient (CLI) | payer MEDICARE ==
[2018-06-12] MEDS ORDERED: Iopamidol 370 76% 100 ML VIAL ONE (13:27)
== END 2018-06-12 12:13 | disposition home or self-care (01) ==
LOC: BICULT 12:12
PROVIDERS: ATTEND Family Medicine
DX: R94.6 Abnormal results of thyroid function studies (principal); R63.4 Abnormal weight loss; N28.1 Cyst of kidney, acquired; E04.2 Nontoxic multinodular goiter
CPT/HCPCS: 74178; 76536

== ENCOUNTER 2018-06-30 12:16 | Day surgery (SDC) | payer MEDICARE ==
[2018-06-27 14:21] VITALS: BMI 19.0
[2018-06-30 14:09] VITALS: BP 139/83; TEMP 98
--- NOTE | 2018-06-30 14:58 | ULT ---
SONOGRAPHIC GUIDED RIGHT THYROID MASS FNA: History: Right thyroid mass. FINDINGS: After explaining the procedure and answering all questions, sonographic survey was performed. The lob ular masses involving the right thyroid lobe were again demonstrated. The more concerning heterogeneo us mass as the superior pole right thyroid lobe that is more superior and superficial contains internal controls consultant al microcalcifications and was chosen for sampling. The more posterior and inferior lesion is well ci rcumscribed and favored not to need sampling. Sterile technique, buffered local anesthesia, sonographic guidance and medial approach were used to c arefully advance a 25 gauge needle into the heterogeneous mass. A total of four passes were obtained and submitted to pathology for evaluation. Patient tolerated the procedure well and was dismissed in good condition. IMPRESSION: Technically successful right thyroid lobe mass FNA. Pathology is pending. POS: [facility]
== END 2018-06-30 14:10 | disposition home or self-care (01) ==
LOC: ULT 12:16
PROVIDERS: ATTEND Specialist
PROC: 0G9H3ZX Drainage of Right Thyroid Gland Lobe, Percutaneous Approach, Diagnostic (ICD-10-PCS; principal; 2018-06-30)
DX: E04.2 Nontoxic multinodular goiter (principal); I10 Essential (primary) hypertension; Z79.899 Other long term (current) drug therapy; Z88.0 Allergy status to penicillin
CPT/HCPCS: 10022; 76942; 88173

== ENCOUNTER 2021-12-08 09:40 | Outpatient (CLI) | payer MEDICARE | END 2021-12-08 09:41 | disposition home or self-care (01) | LOC: BICRAD 09:40 | PROVIDERS: ATTEND Family Medicine | DX: M17.12 Unilateral primary osteoarthritis, left knee (principal); M25.562 Pain in left knee ==